=== PATIENT | male | born 1985 | race Caucasian/White ===

== ENCOUNTER 2017-10-16 18:08 | Emergency (ER) | payer OTHER ==
[2017-10-16 19:02] VITALS: BP 140/88
[2017-10-16] MEDS ORDERED: Ibuprofen TAB* 400 MG PO ONE (19:13)
--- NOTE | 2017-10-16 19:38 | ED ---
Lower Extremity - HPI Summary HPI Summary: 32 yr old male playing ball and drove his left knee into a gym mat. He complains of pain to the patella and the entire knee area. No weakness, numbness or tingling to the lower leg. Injury occurred about 530 pm. No other complaints. - History of Current Complaint Chief Complaint: UCLowerExtremity Stated Complaint: LEFT KNEE INJURY W/C Time Seen by Provider: 10/16/17 19:07 Pain Intensity: 7 - Allergies/Home Medications Allergies/Adverse Reactions: Allergies Allergy/AdvReac Type Severity Reaction Status Date / Time Penicillins Allergy Severe anaphlaxis Verified 10/16/17 19:03 PMH/Surg Hx/FS Hx/Imm Hx - Surgical History Hx Anesthesia Reactions: No Infectious Disease History: No Infectious Disease History: Denies: Traveled Outside the [place] in Last 30 Days - Family History Known Family History: Positive: None - Social History Alcohol Use: None Substance Use Type: Reports: Marijuana Smoking Status (MU): Current Some Day Smoker Type: Cigarettes Review of Systems Positive: Other - knee pain after trauma All Other Systems Reviewed And Are Negative: Yes Physical Exam Triage Information Reviewed: Yes Vital Signs On Initial Exam: Initial Vitals Temp Pulse Resp BP Pulse Ox 100.0 F 86 18 140/88 99 10/16/17 18:57 10/16/17 18:57 10/16/17 18:57 10/16/17 18:57 10/16/17 18:57 Vital Signs Reviewed: Yes Appearance: Positive: Well-Appearing, No Pain Distress Skin: Positive: Other - abrasions to the left knee Eyes: Positive: EOMI ENT: Positive: Normal ENT inspection Neck: Positive: Nontender Respiratory/Lung Sounds: Positive: Clear to Auscultation Cardiovascular: Positive: Pulses are Symmetrical in both Upper and Lower Extremities Musculoskeletal: Positive: Other - left patellar tendon intact. Patella is tender. Popliteal fossae not tender on left. Neurological: Positive: Sensory/Motor Intact, Alert, Oriented to Person Place, Time, CN Intact II-III Psychiatric: Positive: Normal - [place] Coma Scale Best Eye Response: 4 - Spontaneous Best Motor Response: 6 - Obeys Commands Best Verbal Response: 5 - Oriented Coma Scale Total: 15 Diagnostics - Vital Signs Vital Signs Temp Pulse Resp BP Pulse Ox 10/16/17 18:57 100.0 F 86 18 140/88 99 - Laboratory Lab Statement: Any lab studies that have been ordered have been reviewed, and results considered in the medical decision making process. - Radiology left knee Xray Interpretation: No Acute Changes Radiology Interpretation Completed By: Radiologist - final report reviewed Lower Extremity Course/Dx - Course Course Of Treatment: 32 yr old with knee injury, no fracture on xray. Plan knee immobilizer, crutches and ortho referral. - Diagnoses Provider Diagnoses: Contusion, knee Discharge - Discharge Plan Condition: Good Disposition: HOME Prescriptions: Ibuprofen TAB* [Motrin TAB* 600 MG] 600 mg PO Q6H PRN #20 tab PRN Reason: Pain Patient Education Materials: Knee Pain (ED), Knee Sprain (ED), Knee Immobilizer (ED), Hypertension (ED) Referrals: No Primary Care Phys,NOPCP [Primary Care Provider] - Mary Harmon MD [Medical Doctor] - 2 Days
--- NOTE | 2017-10-16 20:18 | RAD ---
Indication: Left knee injury. 4 views of left knee demonstrates no fracture. No other bone or joint abnormality is noted. IMPRESSION: No fracture of the left knee is noted.
== END 2017-10-16 20:41 | disposition home or self-care (01) ==
LOC: UCCORT 18:08
DX: S80.02XA Contusion of left knee, initial encounter (principal); W21.89XA Striking against or struck by other sports equipment, initial encounter; Y93.64 Activity, baseball; Y92.39 Other specified sports and athletic area as the place of occurrence of the external cause; Y99.0 Civilian activity done for income or pay; Z88.0 Allergy status to penicillin; F12.90 Cannabis use, unspecified, uncomplicated; Z72.0 Tobacco use
CPT/HCPCS: 99203; A9270-GY; G0463